=== PATIENT | female | born 1950 | race Caucasian/White ===

== ENCOUNTER → 2017-06-05 | Outpatient (CLI) | payer OTHER | LOC: FIMAGING 15:33 | PROVIDERS: ATTEND Orthopaedic Surgery | DX: Z01.818 Encounter for other preprocedural examination (principal); M17.11 Unilateral primary osteoarthritis, right knee ==

== ENCOUNTER 2017-06-26 05:52 | Observation (INO) | payer OTHER ==
[2017-06-26] MEDS ORDERED: TRANEXAMIC ACID 3,000 MG in NS (SYRINGE) 50 ML IRR ONE (06:00)
[2017-06-26] MEDS ORDERED: BUPI/epINEPH/KETOROLAC IU ONE (06:00)
[2017-06-26] MEDS ORDERED: ROPIVACAINE 0.2% 80 MG, EPINEPHrine 0.2 MG, KETOROLAC TROMETHAMINE 30 MG in SYRINGE 0 ML IU ONE (06:00)
[2017-06-26] MEDS ORDERED: FAMOTIDINE 20 MG TAB PO ONE (06:10)
[2017-06-26] MEDS ORDERED: DEXAMETHASONE 4 MG/ML VIAL IVP ONE (06:10)
[2017-06-26] MEDS ORDERED: ceFAZolin 2 GM/SWFI 2 GM/20 ML SYR IVP ONE (06:10)
[2017-06-26] MEDS ORDERED: ACETAMINOPHEN 325 MG TAB PO ONE (06:10)
[2017-06-26] MEDS ORDERED: LIDOCAINE 1% 2 ML INJ ID PRN (06:13)
[2017-06-26] MEDS ORDERED: LR 1,000 ML IV ONE (06:13)
--- NOTE | 2017-06-26 06:14 | PDHPUP ---
History & Physical Update H&P update statement: This history and physical update is based on an assessment of the patient which was completed after admission or registration (within 24 hours), but prior to the surgery/procedure. H&P update: H&P reviewed & patient examined, no change in patient's condition since H&P completed
[2017-06-26] MEDS ORDERED: TRANEXAMIC ACID 3,000 MG/50 ML BAG IRR ONE (07:35)
[2017-06-26] MEDS ORDERED: VANCOMYCIN 1 GM VIAL ONE (07:35)
[2017-06-26] MEDS ORDERED: MIDAZOLAM 2 MG/2 ML VIAL IVP ONE (07:42)
--- NOTE | 2017-06-26 07:46 | PDANEPAE ---
ANE History of Present Illness Right TKA vs partial ANE Past Medical History - Cardiovascular History Hx Hypertension: No Hx Arrhythmias: No Hx Chest Pain: No Hx Coronary Artery / Peripheral Vascular Disease: No Hx CHF / Valvular Disease: No Hx Palpitations: No - Pulmonary History Hx COPD: No Hx Asthma/Reactive Airway Disease: No Hx Recent Upper Respiratory Infection: No Hx Oxygen in Use at Home: No Hx Sleep Apnea: No Sleep Apnea Screening Result - Last Documented: Negative - Neurologic History Hx Cerebrovascular Accident: No Hx Seizures: No Hx Dementia: No - Endocrine History Hx Diabetes: No Hypothyroid: No Hyperthyroid: No Obesity: no - Renal History Hx Renal Disorders: No - Liver History Hx Hepatic Disorders: No - Neurological & Psychiatric Hx Hx Neurological and Psychiatric Disorders: No - Cancer History Hx Cancer: No - Congenital Disorder History Hx Congenital Disorders: No - GI History GERD: mild Hx Gastrointestinal Disorders: Yes Gastrointestinal History Comment: gerd, loose stools - Other Health History Other Health History: none - Chronic Pain History Chronic Pain: No - Surgical History Prior Surgeries: exploratory lap after colonoscopy. bilat cataracts ANE Review of Systems Review of Systems: - Exercise capacity METS (RN): 4 METS ANE Patient History - Allergies Allergies/Adverse Reactions: amoxicillin Allergy (Mild, Verified 06/08/17 15:37) Rash Penicillins Allergy (Mild, Verified 06/08/17 15:37) Rash - Home Medications Home Medications: Aspirin [Aspirin 81mg (*)] 81 mg PO DAILY 06/03/17 [Last Taken Unknown] Cholecalciferol Vit D3 [Vitamin D3 (*)] 5,000 units PO DAILY 06/03/17 [Last Taken Unknown] Estradiol [Vivelle-Dot 0.05MG (*)] 0.05 mg TD Q7D 06/03/17 [Last Taken Unknown] Herbals/Supplements -Info Only 1 ea PO DAILY 06/03/17 [Last Taken Unknown] Multivitamins [Multivitamin (*)] 1 each PO DAILY 06/03/17 [Last Taken Unknown] - NPO status NPO Since - Liquids (Date): 06/26/17 NPO Since - Liquids (Time): 04:30 NPO Since - Solids (Date): 06/25/17 - Anes Hx Anes Hx: no prior problems - Smoking Hx Smoking Status: Former smoker Marijuana use: No - Family Anes Hx Family Anes Hx: none Family Hx Anesthesia Complications: none ANE Labs/Vital Signs - Vital Signs Blood Pressure: 139/91 Heart Rate: 74 Respiratory Rate: 16 O2 Sat (%): 97 Height: 175.26 cm Weight: 73.936 kg ANE Physical Exam - Airway Neck exam: FROM Mallampati Score: Class 2 Mouth exam: normal dental/mouth exam - Pulmonary Pulmonary: no respiratory distress, no rales or rhonchi - Cardiovascular Cardiovascular: regular rate and rhythym, no murmur, rub, or gallop - ASA Status ASA Status: II ANE Anesthesia Plan Anesthesia Plan: spinal Total IV Anesthesia: Yes
[2017-06-26] MEDS ORDERED: fentaNYL 100 MCG/2 ML INJ ONE (07:57)
[2017-06-26] MEDS ORDERED: PROPOFOL/EMULSION 500 MG/50 ML BOTTLE IV ONE (07:57)
[2017-06-26] MEDS ORDERED: PROMETHAZINE HCL 25 MG SUPPR PR PRN (08:41)
[2017-06-26] MEDS ORDERED: LACTULOSE 20 GM/30 ML UDCUP PO PRN (08:41)
[2017-06-26] MEDS ORDERED: ONDANSETRON 4 MG/2 ML VIAL IVP PRN (08:41)
[2017-06-26] MEDS ORDERED: ONDANSETRON DISINTEGRATING 4 MG TAB PO PRN (08:41)
[2017-06-26] MEDS ORDERED: CYCLOBENZAPRINE 10 MG TAB PO PRN (08:41)
[2017-06-26] MEDS ORDERED: METOCLOPRAMIDE 10 MG/2 ML VIAL IVP PRN (08:41)
[2017-06-26] MEDS ORDERED: MAGNESIUM HYDROXIDE 30 ML UDCUP PO PRN (08:41)
[2017-06-26] MEDS ORDERED: PROMETHAZINE HCL 25 MG/ML INJ IVP PRN (08:41)
[2017-06-26] MEDS ORDERED: TEMAZEPAM 15 MG CAP PO PRN (08:41)
[2017-06-26] MEDS ORDERED: POLYETHYLENE GLYCOL 3350 17 GM PKT PO PRN (08:41)
[2017-06-26] MEDS ORDERED: diphenhydrAMINE 25 MG CAP PO PRN (08:41)
[2017-06-26] MEDS ORDERED: DIPHENOXYLATE/ATROPINE LOMOTIL 1 TAB PO PRN (08:41)
[2017-06-26] MEDS ORDERED: BISACODYL 10 MG SUPP PR PRN (08:41)
[2017-06-26] MEDS ORDERED: LR 1,000 ML IV SCH (09:00)
[2017-06-26] MEDS ORDERED: NALOXONE HCL 0.4 MG/ML INJ IVP PRN (09:30)
[2017-06-26] MEDS ORDERED: fentaNYL 100 MCG/2 ML INJ IVP PRN (09:30)
[2017-06-26] MEDS ORDERED: HYDROmorphONE/DILAUDID 2 MG/ML INJ IVP PRN (09:30)
[2017-06-26] MEDS ORDERED: epHEDrine SULFATE 10 MG/ML SYR IVP PRN (09:30)
[2017-06-26] MEDS ORDERED: ROPIVACAINE HCL 150 MG/30 ML INJ ONE (09:41)
[2017-06-26] MEDS ORDERED: DEXAMETHASONE 4 MG/ML VIAL ONE (09:41)
[2017-06-26] MEDS ORDERED: ONDANSETRON 4 MG/2 ML VIAL ONE (09:41)
--- NOTE | 2017-06-26 09:45 | POSTOPPROG ---
Post Op Note Date of Operation: 06/26/17 Surgeon: David Lares Plater Supervisor: dudley lares Anesthesiologist: dr. castanon Anesthesia: Spinal, Other (Specify) (adductor canal block) Pre-op Diagnosis: right knee OA Post-op Diagnosis: same Indication: right knee pain Procedure: R med mPL robot assisted Findings: right medial knee OA Inf/Abcess present in the surg proc area at time of surgery?: No EBL: 50-100
[2017-06-26] MEDS: SENNOSIDES/DOCUSATE SODIUM TAB PO SCH ×2 (12:20→20:03)
[2017-06-26] MEDS: ACETAMINOPHEN 325 MG TAB PO SCH ×3 (12:20→23:57)
[2017-06-26] MEDS ORDERED: ceFAZolin 2 GM/DEXTROSE 100 ML IV SCH (14:00)
--- NOTE | 2017-06-26 15:25 | GOP ---
[f rep st] OPERATIVE REPORT DATE OF OPERATION: 06/26/2017 SURGEON: Irwin Saul MD NATIONAL ACCOUNT MANAGER: Karen Saul PA-C ANESTHESIA: Spinal. PREOPERATIVE DIAGNOSIS: Right knee osteoarthritis. POSTOPERATIVE DIAGNOSIS: Right knee osteoarthritis. PROCEDURE PERFORMED: Right medial compartment partial knee replacement with computer navigation and robotic assist. FINDINGS: ESTIMATED BLOOD LOSS: 30 cc INDICATIONS: This is a 66-year-old female with progressive pain of the right knee unresponsive to co nservative care. Risks and benefits of surgical intervention were explained in detail. DESCRIPTION OF PROCEDURE: The patient was brought to the operating room and placed on the table in s upine position. Spinal anesthesia was induced without difficulty. A pneumatic tourniquet was applied about the right proximal thigh and the leg was prepped and draped in sterile fashion. Attention was t urned first to the distal aspect of the right femur. At 3 cm proximal to the lateral rise of the femu r, 2 percutaneous half pins were placed for fixation of the femoral array. In a similar fashion, 2 pi ns were placed anterolateral on the tibia for fixation of the tibial array. External land marking and registration of the hip center was performed without difficulty. After exsanguination by elevation, the tourniquet was inflated to 250 mmHg. Incision was made from the tibial tuberosity to the superior pole of the patella. Dissection was sullivan ied out through the subcutaneous tissue to the deep fascia using Bovie electrocautery for hemostasis. Medial parapatellar arthrotomy was carried out to the superior pole of the patella. The medial colla teral ligament was elevated and the infrapatellar fat pad was resected. Internal femoral and tibial r egistration was carried out without difficulty and the femoral and tibial checkpoints were placed and verified for accuracy. Attention was turned to the femur. The foot print for the size 5 femoral component was cut with the 6 mm bur using the [employer] robotic system and verified for accuracy against the CT based plan. The hole wa s cut for the femoral post. In a similar fashion, the 6 mm bur was used to cut the foot print for the size 3 tibial component using the [employer] system and verified for accuracy against the CT based plan. Attention was turned to the posterior aspect of the knee and remnants of the medial meniscus were exc ised. The posterior capsule was injected with ropivacaine, epinephrine and Toradol. Trial reduction w as carried out and there was excellent range of motion, alignment and stability using the size 5 femo ral component and the size 3 tibial component, 3x8 mm polyethylene. All trials were then removed. The joint was thoroughly irrigated and carefully dried. One package of cement and 1 gram of vancomycin were mixed in the vacuum mixer and placed on the fixation surfaces of all components. The components were implanted and all excess cement was thoroughly removed. Implant placement was verified against the CT view plan and found to be excellent. The tourniquet was deflated and all bleeders were coagulated. The wound was thoroughly irrigated and closed using interrupted sutures of 2-0 Vicryl for the joint capsule. The subcu was closed with 3-0 V icryl and the skin with 4-0 Monocryl. Dermabond and Steri-Strips were applied, followed by a compress hilary dressing. The patient was then moved from the operating room to the recovery room in good conditi on, having tolerated the procedure well. CASE CLASSIFICATION: Clean. /[id number]/MODL
[2017-06-26] MEDS: ceFAZolin 2 GM/SWFI 2 GM/20 ML SYR IVP SCH (17:55)
[2017-06-26] MEDS: FAMOTIDINE 20 MG TAB PO SCH (20:03)
[2017-06-26] MEDS: ASPIRIN 81 MG CHEWABLE TAB PO SCH (20:03)
[2017-06-26] MEDS: oxyCODONE IR 5 MG TAB PO PRN (23:59)
[2017-06-27] MEDS: ceFAZolin 2 GM/SWFI 2 GM/20 ML SYR IVP SCH
[2017-06-27] MEDS: oxyCODONE IR 5 MG TAB PO PRN ×2 (06:01→10:56)
[2017-06-27] MEDS: ACETAMINOPHEN 325 MG TAB PO SCH ×2 (06:45→12:14)
[2017-06-27 07:54] VITALS: BP 129/76
[2017-06-27] MEDS: FAMOTIDINE 20 MG TAB PO SCH (09:34)
[2017-06-27] MEDS: ASPIRIN 81 MG CHEWABLE TAB PO SCH (09:34)
[2017-06-27] MEDS: SENNOSIDES/DOCUSATE SODIUM TAB PO SCH (09:34)
--- NOTE | 2017-06-29 10:11 | GDS ---
[f rep st] DISCHARGE SUMMARY ADMISSION DIAGNOSIS: Right knee osteoarthritis. DISCHARGE DIAGNOSIS: Right knee osteoarthritis. PROCEDURE: Right partial knee arthroplasty medial compartment, robot assisted. VTE PROPHYLAXIS: Recommend aspirin 81 mg twice daily for a month. BRIEF DESCRIPTION OF HOSPITAL STAY: Patient was admitted for an elective joint arthroplasty. The pa levar tolerated the procedure well and has passed physical therapy. The patient was given appropriat e antibiotic prophylaxis and venous thromboembolism prophylaxis. The patient's pain was well control led on oral pain medication, patient was holding down food, and had urinated. Decision was made to d ischarge the patient. The patient was given post-operative prescriptions pre-operatively. PLAN: To follow up as scheduled with Dr. Saul at [facility] July 16 at 3:15 . /[id number]/MODL
== END 2017-06-27 12:03 | disposition home or self-care (01) ==
LOC: F3N 05:52
PROVIDERS: ADMIT Orthopaedic Surgery; ATTEND Orthopaedic Surgery
PROC: 8E0YXBZ Computer Assisted Procedure of Lower Extremity (ICD-10-PCS; principal; 2017-06-26 08:15)
PROC: 0SRC0J9 Replacement of Right Knee Joint with Synthetic Substitute, Cemented, Open Approach (ICD-10-PCS; principal; 2017-06-26 08:15)
DX: M17.11 Unilateral primary osteoarthritis, right knee (principal); K21.9 Gastro-esophageal reflux disease without esophagitis; Z87.891 Personal history of nicotine dependence; Z88.0 Allergy status to penicillin
CPT/HCPCS: 20985; 27446; 73560; 97116; 97161; 97165; G0378; C1713; J0171; J0690; J1100; J1885; J2250; J2405; J2704; J2795; J3010; J3370

== ENCOUNTER → 2018-05-21 | Outpatient (CLI) | payer OTHER | LOC: FIMAGING 14:40 | PROVIDERS: ATTEND Orthopaedic Surgery | DX: M17.12 Unilateral primary osteoarthritis, left knee (principal) ==

== ENCOUNTER 2018-06-09 09:09 | Observation (INO) | payer OTHER ==
[2018-06-09] MEDS ORDERED: ceFAZolin 2 GM/DEXTROSE 100 ML IV ONE (09:19)
[2018-06-09] MEDS ORDERED: DEXAMETHASONE 4 MG/ML VIAL IVP ONE (09:19)
[2018-06-09] MEDS ORDERED: ACETAMINOPHEN 325 MG TAB PO ONE (09:19)
[2018-06-09] MEDS ORDERED: TRANEXAMIC ACID 3,000 MG in NS (SYRINGE) 50 ML IRR ONE (09:19)
[2018-06-09] MEDS ORDERED: FAMOTIDINE 20 MG TAB PO ONE (09:19)
[2018-06-09] MEDS ORDERED: ROPIVACAINE 0.2% 80 MG, EPINEPHrine 0.2 MG, KETOROLAC TROMETHAMINE 30 MG in SYRINGE 0 ML IU ONE (09:19)
[2018-06-09] MEDS ORDERED: LIDOCAINE 1% 2 ML INJ ID PRN (09:20)
[2018-06-09] MEDS ORDERED: LR 1,000 ML IV ONE (09:20)
[2018-06-09] MEDS ORDERED: DEXAMETHASONE 4 MG/ML VIAL ONE (09:28)
[2018-06-09] MEDS ORDERED: VANCOMYCIN 1 GM VIAL ONE (10:07)
[2018-06-09] MEDS ORDERED: MIDAZOLAM 2 MG/2 ML VIAL ONE (10:51)
[2018-06-09] MEDS ORDERED: MIDAZOLAM 2 MG/2 ML VIAL IVP ONE ×2 (10:53→10:54)
--- NOTE | 2018-06-09 10:54 | PDANEPAE ---
ANE Past Medical History - Cardiovascular History Hx Hypertension: No Hx Arrhythmias: No Hx Chest Pain: No Hx Coronary Artery / Peripheral Vascular Disease: No Hx CHF / Valvular Disease: No Hx Palpitations: No - Pulmonary History Hx COPD: No Hx Asthma/Reactive Airway Disease: No Hx Recent Upper Respiratory Infection: No Hx Oxygen in Use at Home: No Hx Sleep Apnea: No Sleep Apnea Screening Result - Last Documented: Negative - Neurologic History Hx Cerebrovascular Accident: No Hx Seizures: No Hx Dementia: No - Endocrine History Hx Diabetes: No - Renal History Hx Renal Disorders: No - Liver History Hx Hepatic Disorders: No - Neurological & Psychiatric Hx Hx Neurological and Psychiatric Disorders: No - Cancer History Hx Cancer: No - Congenital Disorder History Hx Congenital Disorders: No - GI History Hx Gastrointestinal Disorders: Yes Gastrointestinal History Comment: OCCASIONAL REFLUX WILL USE OTC PRN - Other Health History Other Health History: OSTEOARTHRITIS - Chronic Pain History Chronic Pain: Yes (LT KNEE) - Surgical History Prior Surgeries: LT BREAST BX 04/2018. RT KNEE PARTIAL ARTHROPLASTY 05/2017. NADIA CATARACT. exploratory lap after colonoscopy. bilat cataracts ANE Review of Systems Review of Systems: - Exercise capacity METS (RN): 4 METS ANE Patient History - Allergies Allergies/Adverse Reactions: amoxicillin Allergy (Mild, Verified 06/08/17 15:37) Rash Penicillins Allergy (Mild, Verified 06/08/17 15:37) Rash - Home Medications Home Medications: Herbals/Supplements -Info Only 1 ea PO DAILY 06/03/17 [Last Taken 06/09/18 06: 00 probiotic only] Estradiol [Vivelle-Dot 0.05MG (*)] 0.05 mg TD Q14D 05/31/18 [Last Taken 06/05/18 ] Levothyroxine [Synthroid 50 mcg (*)] 50 mcg PO DAILY 05/31/18 [Last Taken ] Omeprazole 20 mg PO DAILY PRN 06/03/18 [Last Taken 06/08/18] - NPO status NPO Since - Liquids (Date): 06/09/18 NPO Since - Liquids (Time): 08:00 NPO Since - Solids (Date): 06/08/18 NPO Since - Solids (Time): 18:00 - Smoking Hx Smoking Status: Former smoker - Family Anes Hx Family Hx Anesthesia Complications: none ANE Labs/Vital Signs - Vital Signs Blood Pressure: 164/95 Heart Rate: 72 Respiratory Rate: 16 O2 Sat (%): 95 Height: 172.72 cm Weight: 78.471 kg ANE Physical Exam - Airway Neck exam: FROM Mallampati Score: Class 2 - Pulmonary Pulmonary: no respiratory distress - Cardiovascular Cardiovascular: regular rate and rhythym - ASA Status ASA Status: II ANE Anesthesia Plan Anesthesia Plan: spinal [facility] Anesthesia: single shot NB Total IV Anesthesia: Yes
[2018-06-09] MEDS ORDERED: PROPOFOL/EMULSION 500 MG/50 ML BOTTLE IV ONE (10:58)
[2018-06-09] MEDS ORDERED: MAGNESIUM HYDROXIDE 30 ML UDCUP PO PRN (11:32)
[2018-06-09] MEDS ORDERED: diphenhydrAMINE 25 MG CAP PO PRN (11:32)
[2018-06-09] MEDS ORDERED: PROMETHAZINE HCL 25 MG/ML INJ IVP PRN (11:32)
[2018-06-09] MEDS ORDERED: DIPHENOXYLATE/ATROPINE LOMOTIL 1 TAB PO PRN (11:32)
[2018-06-09] MEDS ORDERED: METOCLOPRAMIDE 10 MG/2 ML VIAL IVP PRN (11:32)
[2018-06-09] MEDS ORDERED: oxyCODONE IR 5 MG TAB PO PRN ×2 (11:32→11:48)
[2018-06-09] MEDS ORDERED: ONDANSETRON 4 MG/2 ML VIAL IVP PRN ×2 (11:32→11:48)
[2018-06-09] MEDS ORDERED: ONDANSETRON DISINTEGRATING 4 MG TAB PO PRN (11:32)
[2018-06-09] MEDS ORDERED: BISACODYL 10 MG SUPP PR PRN (11:32)
[2018-06-09] MEDS ORDERED: LACTULOSE 20 GM/30 ML UDCUP PO PRN (11:32)
[2018-06-09] MEDS ORDERED: POLYETHYLENE GLYCOL 3350 17 GM PKT PO PRN (11:32)
[2018-06-09] MEDS ORDERED: PROMETHAZINE HCL 25 MG SUPPR PR PRN (11:32)
[2018-06-09] MEDS ORDERED: TEMAZEPAM 15 MG CAP PO PRN (11:32)
[2018-06-09] MEDS ORDERED: PROPOFOL 200 MG/20 ML VIAL ONE (11:46)
[2018-06-09] MEDS ORDERED: HYDROCODONE/APAP 5/325 TAB PO PRN (11:48)
[2018-06-09] MEDS ORDERED: ACETAMINOPHEN 500 MG TAB PO PRN (11:48)
[2018-06-09] MEDS ORDERED: MEPERIDINE 25 MG/0.5 ML AMP IVP PRN (11:48)
[2018-06-09] MEDS ORDERED: ALBUTEROL 3 ML DEYVIAL IH PRN (11:48)
[2018-06-09] MEDS ORDERED: fentaNYL 100 MCG/2 ML INJ IVP PRN (11:48)
[2018-06-09] MEDS ORDERED: NALOXONE HCL 0.4 MG/ML INJ IVP PRN (11:48)
[2018-06-09] MEDS ORDERED: LR 1,000 ML IV SCH (12:00)
--- NOTE | 2018-06-09 12:34 | POSTOPPROG ---
Post Op Note Date of Operation: 06/09/18 Surgeon: David Saul Hydrogenation Operator: Alexa Guevara PAC Anesthesiologist: Dr. Kathy Khan Anesthesia: Spinal, Other (Specify) (adductor canal block) Pre-op Diagnosis: left knee OA Post-op Diagnosis: same Indication: left knee pain Procedure: left medial PKA, robot assisted Findings: severe OA of left medial knee Inf/Abcess present in the surg proc area at time of surgery?: No EBL: 50-100
--- NOTE | 2018-06-09 13:45 | POSTANESTH ---
Post Anesthetic Evaluation Cardiovascular Status: Similar to Pre-Op Cond Respiratory Status: Similar to Pre-op Cond. Level of Consciousness/Mental Status: Mildly Sleepy, Arousable Pain Control: Adequate, Prn Tx Ordered Nausea/Vomiting Control: Adequate, Prn Tx Ordered Complications Possibly Related to Anesthesia: None Noted
--- NOTE | 2018-06-09 15:02 | SOAPPROG ---
DHRUV Progress Note Assessment/Plan: Assessment: s/p left medial partial knee arthroplasty - earlier today Plan: Begin D/C planning - likely tomorrow; needs to be released from PT before d/c; she has the support of her at home; has history of right partial knee arthroplasty and states she is familiar with the recovery process Continue oral pain medication - tolerating them Continue VTE ppx - Aspirin 81 mg BID x 4 weeks, JUAN myers, SCDs Continue PT efforts 06/09/18 15:00 06/09/18 15:02 Subjective: Patient states she is feeling good at this time. She reports having a history of a right partial knee replacement and is familiar with the recovery. She worked with PT earlier this afternoon and was able to ambulate; she has not attempted stairs yet. She has not scheduled outpatient PT yet, states after her right partial knee replacement she only attended outpatient PT a couple times and feels she will be able to do her own rehab/therapy exercises at home. Currently she denies shortness of breath, chest pain, fever, chills, nausea, vomiting. Objective: Vital Signs Temp Pulse Resp BP Pulse Ox 36.3 C 66 16 127/86 H 95 06/09/18 13:49 06/09/18 13:49 06/09/18 13:49 06/09/18 13:49 06/09/18 13:49 06/08/18 06/09/18 06/10/18 05:59 05:59 05:59 Intake Total 300 Balance 300 Patient is resting comfortably in bed, no acute distress. Her is in the room. LLE: Surgical wound dressings are clean, dry and intact. Lower leg compartments are soft and nontender. She can actively DF and PD left foot and great toe. Grossly NVI distally. ICD10 Worksheet Patient Problems: Problems Problem Status Onset Unilateral primary osteoarthritis, left knee Acute Primary localized osteoarthritis of right knee Acute
[2018-06-09] MEDS: ceFAZolin 2 GM/DEXTROSE 100 ML IV SCH (16:12)
[2018-06-09] MEDS: ACETAMINOPHEN 325 MG TAB PO SCH (16:12)
[2018-06-09] MEDS: FAMOTIDINE 20 MG TAB PO SCH (21:04)
[2018-06-09] MEDS: ASPIRIN 81 MG CHEWABLE TAB PO SCH (21:04)
[2018-06-09] MEDS: CYCLOBENZAPRINE 10 MG TAB PO PRN (21:04)
[2018-06-10] MEDS: SENNOSIDES/DOCUSATE SODIUM TAB PO SCH ×2 (00:39→08:47)
[2018-06-10] MEDS: ACETAMINOPHEN 325 MG TAB PO SCH ×3 (00:54→11:59)
[2018-06-10] MEDS: ceFAZolin 2 GM/DEXTROSE 100 ML IV SCH (00:54)
[2018-06-10] MEDS: CYCLOBENZAPRINE 10 MG TAB PO PRN (05:18)
[2018-06-10 07:11] VITALS: BP 146/88
[2018-06-10] MEDS: FAMOTIDINE 20 MG TAB PO SCH (08:45)
[2018-06-10] MEDS: ASPIRIN 81 MG CHEWABLE TAB PO SCH (08:45)
[2018-06-10] MEDS ORDERED: LEVOTHYROXINE 50 MCG TAB PO SCH (09:00)
--- NOTE | 2018-06-10 09:30 | SOAPPROG ---
MARILIAAP Progress Note Assessment/Plan: Assessment: s/p left medial partial knee arthroplasty, robot assist - POD1 Anemia: level is expected initially postop. Asymptomatic. Continue to monitor. Plan: D/C home today; needs to be released from PT before d/c; she has the support of her at home; has history of right partial knee arthroplasty and states she is familiar with the recovery process Continue oral pain medication - she was given oxycodone 5 mg and celebrex 200 mg prior to surgery Continue VTE ppx - Aspirin 81 mg BID x 4 weeks, JUAN myers, SCDs. She will continue aspirin and JUAN clarke at home Continue PT efforts 06/10/18 09:19 Subjective: Patient states she is still feeling really good this morning, reports it feels as if the nerve block is still in effect a bit. She reports feeling well enough to go home today. Patient denies shortness of breath, chest pain, fever, chills. Objective: Vital Signs Temp Pulse Resp BP Pulse Ox 36.4 C 60 17 146/88 H 95 06/10/18 07:10 06/10/18 07:10 06/10/18 07:10 06/10/18 07:10 06/10/18 07:10 Laboratory Results 06/10/18 04:28 06/09/18 06/10/18 06/11/18 05:59 05:59 05:59 Intake Total 650 Balance 650 Patient resting comfortably in bed, no acute distress. LLE: Wound dressings are clean, dry and intact. Lower leg compartments are soft and nontender. She can actively DF and PF her left foot and great toe against resistance. Grossly NVI distally. ICD10 Worksheet Patient Problems: Problems Problem Status Onset Unilateral primary osteoarthritis, left knee Acute Primary localized osteoarthritis of right knee Acute
--- NOTE | 2018-06-10 09:33 | PDDCSUM ---
Discharge Summary Discharge Summary: ADMISSION DIAGNOSIS: Left knee severe degenerative arthritis, medial compartment DISCHARGE DIAGNOSIS: Left knee severe degenerative arthritis, medial compartment OPERATION PERFORMED: June 09, 2018 Left partial medial knee arthroplasty, Sahil robot assisted. POSTOPERATIVE COMPLICATIONS: None CONDITION ON DISCHARGE: Improved DESCRIPTION OF HOSPITAL COURSE: The patient was admitted to the hospital on the morning of surgery and underwent a left partial knee resurfacing, medial compartment, Sahil robot assisted. Postoperatively, patient was treated with multimodal DVT prophylaxis, including aspirin, JUAN hose and SCDs. Patient was seen by PT and made good progress with ambulation and stairs. On the first post- operative day the patients H&H was 12.4/37.2. Patient was able to void spontaneously. At the time of discharge, patient was afebrile, wound was clean and dry. Patient is walking with a walker. DISPOSITION: The patient is discharged home where she will have the support of her . She will have outpatient PT in the next 1-2 weeks. Patient may progress to full weightbearing on the left lower extremity as tolerated. JUAN stockings for 2 weeks during the day time. Aspirin 81 mg BID for 4 weeks. Patient has prescriptions for Celebrex and oxycodone for pain control. The patient will be seen by Dr. Hilton office on 07/06/18. If there are any problems, patient is to call Dr. Hilton office.
--- NOTE | 2018-06-10 10:22 | ASMTLACE ---
FORESTE Length of stay for Answers: 2 days current admission Acuity / Level of Answers: No Care: Did the patient have an inpatient admission? Comorbidities - select Answers: Opioid dependence all that apply / Chronic pain # of Emergency department Answers: 0 visits in the last 6 months Score: 6 Date Signed: 06/10/2018 10:21 AM Electronically Signed By:KATEY Bruce
--- NOTE | 2018-06-10 11:48 | GOP ---
[f rep st] OPERATIVE REPORT DATE OF OPERATION: 06/09/2018 SURGEON: Irwin Saul MD DANCE COACH: Angeles Guevara P.A.-C. ANESTHESIA: Spinal. PREOPERATIVE DIAGNOSIS: Left knee osteoarthritis. POSTOPERATIVE DIAGNOSIS: Left knee osteoarthritis. PROCEDURE PERFORMED: Left medial compartment partial knee replacement with computer navigation and r obotic assist. FINDINGS: ESTIMATED BLOOD LOSS: 30 cc. INDICATIONS: This is a 67-year-old female with progressive pain of the left knee unresponsive to con servative care. Risks and benefits of surgical intervention were explained in detail. DESCRIPTION OF PROCEDURE: The patient was brought to the operating room and placed on the table in s upine position. Spinal anesthesia was induced without difficulty. A pneumatic tourniquet was applie d about the left proximal thigh and the leg was prepped and draped in sterile fashion. Attention was turned first to the distal aspect of the left femur. At 3 cm proximal to the lateral rise of the fe mur, 2 percutaneous half pins were placed for fixation of the femoral array. In a similar fashion, 2 pins were placed anterolateral on the tibia for fixation of the tibial array. External land marking and registration of the hip center was performed without difficulty. After exsanguination by elevation, the tourniquet was inflated to 250 mmHg. Incision was made from the tibial tuberosity to the superior pole of the patella. Dissection was car ried out through the subcutaneous tissue to the deep fascia using Bovie electrocautery for hemostasis . Medial parapatellar arthrotomy was carried out to the superior pole of the patella. The medial co llateral ligament was elevated and the infrapatellar fat pad was resected. Internal femoral and tibi al registration was carried out without difficulty and the femoral and tibial checkpoints were placed and verified for accuracy. Attention was turned to the femur. The foot print for the size 5 femoral component was cut with the 6 mm bur using the [employer] robotic system and verified for accuracy against the CT based plan. The hole was cut for the femoral post. In a similar fashion, the 6 mm bur was used to cut the foot print for t he size 4 tibial component using the [employer]ASHANTH system and verified for accuracy against the CT based plan. Attention was turned to the posterior aspect of the knee and remnants of the medial meniscus were exc ised. The posterior capsule was injected with ropivacaine, epinephrine and Toradol. Trial reduction was carried out and there was excellent range of motion, alignment and stability using the size 5 fe moral component and the size 4 tibial component. All trials were then removed. The joint was thoroughly irrigated and carefully dried. One package o f cement and 1 gram of vancomycin were mixed in the vacuum mixer and placed on the fixation surfaces of all components. The components were implanted and all excess cement was thoroughly removed. Impla nt placement was verified against the CT view plan and found to be excellent. The tourniquet was deflated and all bleeders were coagulated. The wound was thoroughly irrigated and closed using interrupted sutures of 2-0 Vicryl for the joint capsule. The subcu was closed with 3-0 Vicryl and the skin with 4-0 Monocryl. Dermabond and Steri-Strips were applied, followed by a compr essive dressing. The patient was then moved from the operating room to the recovery room in good con dition, having tolerated the procedure well. CASE CLASSIFICATION: Clean. /[id number]/MODL
== END 2018-06-10 12:10 | disposition home or self-care (01) ==
LOC: F3N 09:09
PROVIDERS: ADMIT Orthopaedic Surgery; ATTEND Orthopaedic Surgery
DX: M16.12 Unilateral primary osteoarthritis, left hip (principal); K21.9 Gastro-esophageal reflux disease without esophagitis; Z87.891 Personal history of nicotine dependence; Z96.651 Presence of right artificial knee joint; Z88.0 Allergy status to penicillin
CPT/HCPCS: 27446; 73560; 97110; 97116; 97161; G0378; C1713; J0171; J0690; J1100; J1885; J2250; J2704; J2795; J3370